=== PATIENT | female | born 2000 | race Caucasian/White ===

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

== ENCOUNTER 2020-04-30 01:15 | Inpatient (IN) | payer MEDICAID ==
[~2020-04-30] VITALS: Ht 160 cm; Wt 61.8 kg
[2020-04-30] VITALS (15 sets, daily range): BP systolic 94–122; BP diastolic 58–74; PULSE 55–83; TEMP 97.1–98.4
--- NOTE | 2020-04-30 02:25 | NUR ---
Repeat SVE with changes noted. Discussed with pt laboring toward vaginal delivery or elective primary C/S. Reviewed risks/benefits of both. Pt declines labor, opts for C/S.
--- NOTE | 2020-04-30 02:45 | NUR ---
Dr Knight @ bedside, SVE. Discusses delivery options with pt and friend. Questions invited and answered. Pt states "I can try for a vaginal delivery"
--- NOTE | 2020-04-30 03:00 | NUR ---
To edge of bed for epidural placement. See anesthesia record.
[2020-04-30 03:05] LABS: BASO # 0.1 (0.0-0.2); BASO % 0.4 % (0.0-2.0); EOS # 0.3 (0.0-0.7); EOS % 1.6 % (0-4.0); GRAN # 12.3 (1.4-6.5); GRAN % 69.4 % (42.2-75.2); HEMATOCRIT 30.5 % (37.0-47.0); HEMOGLOBIN 10.1 g/dl (12.5-16.0); LYMPH # 3.8 (1.2-3.4); LYMPH % 21.4 % (20.0-51.0); MEAN CELL VOLUME 85 fl (80.0-100.0); MEAN CORPUSCULAR HEMOGLOBIN 28 pg (27.0-31.0); MEAN CORPUSCULAR HGB CONC 33 g/dl (33.0-37.0); MEAN PLATELET VOLUME 12.6 fl (7.4-10.4); MONO # 1.2 (0.1-0.6); MONO % 6.5 % (1.7-9.3); PLATELET COUNT 273 K/mm3 (130-400); RED BLOOD COUNT 3.58 M/mm3 (4.10-5.30); REDCELL DISTRIBUTION WIDTH-CV 14.8 % (11.5-14.5)
--- NOTE | 2020-04-30 03:19 | NUR ---
After epidural catheter taped in place, as pt is laying down, she states "I think I just want a C/S"
--- NOTE | 2020-04-30 03:55 | NUR ---
To OR per bed.
--- NOTE | 2020-04-30 06:55 | NUR ---
Pericare provided. Clean bed pad and peripad provided. Pain medication, snack given. POC discussed.
[2020-04-30] MEDS ORDERED: ZOLOFT 100MG100 MG PO (07:26)
--- NOTE | 2020-04-30 08:30 | NUR ---
Pt up to bathroom with standby assist. Urinary cath removed. Pericare provided. Clean gown, mesh panties, forest-pad, clean bed pad, abdominal binder provided. Assisted back to bed.
--- NOTE | 2020-04-30 09:36 | NUR ---
Patient visiting infant in nursery. Partner at bedside with pt and . Mother updated on POC by Dr. Veras.
--- NOTE | 2020-04-30 16:15 | NUR ---
1615- Offered COVID swab per standing orders, Pt declines because she does not have symptoms. Pt educated on asymptomatic carriers and that we want to test for contact tracing. Pt declines at this time.
[2020-05-01 03:00] VITALS: BP 98/52; PULSE 61; TEMP 98
[2020-05-01 06:45] VITALS: BP 106/66; PULSE 60; TEMP 98
--- NOTE | 2020-05-01 06:45 | NUR ---
Rests in bed, alert. States has a little blood from her breast when pumping. Gave patient some lanolin cream. Explained to her how to use it.
--- NOTE | 2020-05-01 09:16 | NUR ---
paste worker met with patient, alone, to assess needs and safety. Patient presents and states she is in a polyamorous relationship with another female and a male. Patient states that the male is the father of her baby. Female partner is present and is patient's support person throughout hospital stay. Staff reports that patient often looks to female when receiving questions and that female often answers questions directed to patient. Staff reports that patient was on face time with male partner on 04/30/2020 for about 5 hours. paste worker asked about patient's first child and patient confirmed that DCF was involved and that child was removed from her care and that she severed her own rights with that child. Patient states that this was in [place], [place]. Worker asked patient, human trafficking screening questions. Patient states that she is not being forced to commit acts and be involved in this relationship against her will. Patient states "this is hard for people to understand, but I am willing to be in this relationship". Patient states that there are no other people in this relationship, other than her and the and . Patient states that her mother is and that her father lives down the street and is aware that she is in this relationship. Patient states that she if off work from [employer] and that she has supplies and is enrolled in the WIC program in [place], [place]. paste worker collaborated with nursing regarding the above information.
[2020-05-01] MEDS ORDERED: MOTRIN 600600 MG/TAB PO (11:04)
[2020-05-01] MEDS ORDERED: PERCOCET 325 MG1 TA2 PO (11:05)
--- NOTE | 2020-05-01 11:30 | NUR ---
Rests in bed, alert. Checked incision site. Went over signs and symtoms of infection. 1135 Ibuprofen 600 mg given as ordered.
--- NOTE | 2020-05-01 11:50 | NUR ---
Request tums and percocet. Tums 1,000 mg, percocet 5/325 mg two given per request and as ordered.
[2020-05-01 16:30] VITALS: BP 100/53; PULSE 58; TEMP 98.1
[2020-05-01 18:36] VITALS: BP 110/71; PULSE 69; TEMP 98
--- NOTE | 2020-05-02 07:02 | NUR ---
BEDSIDE REPORT DECLINED. REPORT RECEIVED FROM OFF GOING RNGEO. CARE TAKEN OVER BY THIS RN.
[2020-05-02 07:18] VITALS: BP 92/47; PULSE 67; TEMP 98.6
== END 2020-05-02 10:05 | disposition home or self-care (01) | DRG 788 ==
LOC: LDRO 01:15 → LDR 01:40 → OB 02:44 → LDR 02:44 → LDRO 02:44 → OB 06:00
PROVIDERS: Obstetrics & Gynecology; ADMIT Obstetrics & Gynecology
PROC: 10D00Z1 Extraction of Products of Conception, Low, Open Approach (ICD-10-PCS; principal; 2020-04-30)
DX: O34.593 Maternal care for other abnormalities of gravid uterus, third trimester (principal); O43.113 Circumvallate placenta, third trimester; N85.6 Intrauterine synechiae; O99.02 Anemia complicating childbirth; O99.344 Other mental disorders complicating childbirth; F32.9 Major depressive disorder, single episode, unspecified; D64.9 Anemia, unspecified; Z3A.36 36 weeks gestation of pregnancy; Z37.0 Single live birth; O99.334 Smoking (tobacco) complicating childbirth; F17.210 Nicotine dependence, cigarettes, uncomplicated; Z88.0 Allergy status to penicillin
CPT/HCPCS: J0690; J1885; J2270; J2370; J2400; J2405; J2590; J7120

== ENCOUNTER 2023-02-11 04:42 | Inpatient (IN) | payer MEDICAID ==
[2023-02-11] VITALS (28 sets, daily range): BP systolic 84–138; BP diastolic 48–73; PULSE 44–71; TEMP 97.8–98.3
[~2023-02-11] VITALS: Ht 160 cm; Wt 62.7 kg
[~2023-02-11 04:42] MED LIST: MOTRIN 600600 MG/TAB PO; PERCOCET 325 MG1 TA2 PO; PRENATAL TABLET PO; TUMS500 MG PO; TYLENOL 500MG500 MG PO; ZOLOFT 100MG100 MG PO
--- NOTE | 2023-02-11 04:55 | NUR ---
PT OF , , 35/2, PRESENTS FOR LEAKING OF FLUIDS, STATES HER WATER BROKE AT 0430. CONFIRMS MOVEMENT, DENIES ANY BLEEDING, DENIES ANY COMPLICATIONS WITH THIS .
--- NOTE | 2023-02-11 05:15 | NUR ---
NOTIFIED THAT PT OF PRESENTS, , 35/2, FOR SPONTANEOUS RUPTURE OF MEMBRANES. AMNIOTRACE POSITIVE. PT DILATED 3/90%/-2, ISHAAN IRREGULARLY EVERY 6-8 MINUTES. REPEAT CSECTION. SROM AT 0430 THIS MORNING, CLEAR FLUID. STRIP REACTIVE. ORDERS TO GIVE BETAMETHASONE, GIVE 2GM ANCEF, KEEP PATIENT NPO, AND PLAN TO GO BACK FOR A CSECTION AT 1000. IF PATIENT STARTS TO LABOR PRIOR TO THEN TO NOTIFY HER.
[2023-02-11 05:59] LABS: BASO # 0.1 K/mm3 (0.0-0.2); BASO % 0.4 % (0.0-2.0); EOS # 0.2 K/mm3 (0.0-0.7); EOS % 1.5 % (0.0-4.0); GRAN # 9.3 K/mm3 (1.4-6.5); GRAN % 65.9 % (42.2-75.2); HEMOGLOBIN 10.9 g/dl (12.5-16.0); LYMPH # 3.6 K/mm3 (1.2-3.4); LYMPH % 25.4 % (20.0-51.0); MEAN CELL VOLUME 89 fl (80.0-100.0); MEAN CORPUSCULAR HEMOGLOBIN 29 pg (27-31); MEAN CORPUSCULAR HGB CONC 33 g/dl (33.0-37.0); MONO # 0.9 K/mm3 (0.1-0.6); MONO % 6.2 % (1.7-9.3); PLATELET COUNT 239 K/mm3 (130-400); RED BLOOD COUNT 3.75 M/mm3 (4.10-5.30); REDCELL DISTRIBUTION WIDTH-CV 12.8 % (11.5-14.5)
[2023-02-11 06:00] LABS: HEMATOCRIT 33.4 % (37.0-47.0)
--- NOTE | 2023-02-11 10:45 | NUR ---
PT ARRIVED TO PACU AT 1040 S/P REPEAT C/S DUE TO PROM AT 35.2. PT ALERT AND ORIENTATED, TIRED. VSS. PT NORMAL BP HAS BEEN 90-100/50-60'S UPON ARRIVAL TO HOSPTIAL. PT WITHOUT COMPLAINTS. MILD NAUSEA HAS RESOLVED. ABD INCISION CLOSED WITH SUTURE AND COVERED WITH TELFA, ABD AND MEDIPORE TAPE. DSG DRY AND INTACT. LAWRENCE DRAINING CLEAR LIGHT YELLOW URINE. SCD'S ON. TAP BLOCK GIVEN. PT DENIES PAIN AT THIS TIME.
--- NOTE | 2023-02-11 11:08 | NUR ---
PT SLEEPING IN PACU. AROUSABLE WITH FUNDAL CHECKS.
--- NOTE | 2023-02-11 11:20 | NUR ---
PT AWAKE, ALERT AND HOLDING . DENIES DIZZINESS OR NAUSEA. REQUESTING FOOD AND DRINK. LOCHIA SCANT, DSG C/D/I. BP REMAINS 85-90'S/50'S. IV FLUIDS CONTINUE. PT TRANSFERRED VIA BED TO ROOM 10.
--- NOTE | 2023-02-11 13:30 | NUR ---
Pt requesting a wheelchair and assistance to go outside for fresh air. Explained to pt she is only 3 hours post op C/S delivery and she would not be able to get in wc as she still has not regained complete mobility in her legs. Explained we are continuing to monitor her VS and bleeding post delivery and she is requesting pain medication. Offered pt nicotine patch. Pt declined.
--- NOTE | 2023-02-11 15:05 | NUR ---
Pt uncomfortable in bed. Desires to get up to chair. Now able to lift both legs off of bed. Pericare done. Pt assisted up to chair. Tolerated activity very well and is now much more comfortable. Call light in reach. Spouse in room with pt.
--- NOTE | 2023-02-11 16:55 | NUR ---
Pt ambulated to nursing desk asking to go downstairs to meet her friend to bring her to her room for a visit. Explained to pt she is not allowed to leave the floor and that it is for her own safety since she delivered by C/S at 1001 this am. Offered pt a nicotine patch. Pt states she is not wanting to go outside to smoke and declines the patch.
[2023-02-12 03:45] VITALS: BP 138/76; PULSE 48; TEMP 98
--- NOTE | 2023-02-12 05:17 | NUR ---
SHIFT UPDATE. AT THE START OF THIS SHIFT PATIENT WAS AMBULATING IN [place] AND REQUESTED THAT BABY BE SENT TO THE NURSERY SO THAT SHE COULD REST. RN CHECKS ON PATIENT 30 MINUTES LATER AND PATIENT REPORTS VOMITING AND WANTS TO KNOW IF SHE CAN GO OUTSIDE, SHE FEELS THAT SOME FRESH AIR WOULD HELP HER NAUSEA. RN STATES THAT PATIENTS ARE NOT ALLOWED TO LEAVE THE UNIT, OFFERS CRACKERS AND SPRITE, PT STATES SHE WOULD LIKE TO TRY SOME CRACKERS AND SPRITE. PATIENT THEN REQUESTS THAT BE BROUGHT BACK TO THE ROOM. PT VOMITS AGAIN AN HOUR LATER AND STATES THAT SHE IS CRAMPY AND FEELS THOUGH SHE IS GOING TO PASS A CLOT, RN CHECKS FUNDUS, FIRM 2 BELOW AND SCANT BLEEDING NOTED. PATIENT REQUESTS TO SIT IN THE SHOWER TO HELP WITH THE CRAMPING. RN ASSISTS PATIENT INTO THE SHOWER. PT STATES THE SHOWER DID NOT HELP AT ALL AND FEELS THOUGH SHE IS CRAMPY BECAUSE SHE IS UNABLE TO PEE, SHE HAS NOT PEED SINCE HER LAWRENCE WAS REMOVED AROUND 1600. RN BLADDER SCANS PATIENT, 100 ML OF URINE NOTED. INFORMED PATIENT THAT THERE IS NOT A SIGNIFICANT AMOUNT OF URINE NOTED TO JUSTIFY STRAIGHT CATHING HER. PATIENT STATES WE CAN GIVE IT ANOTHER HOUR. AROUND 2200, IBUPROFEN, AUTUMN, AND ZOFRAN GIVEN. RN STATES IF NO IMPROVEMENT IN 1 HOUR WE WILL SEE ABOUT THE NEXT STEPS. PT COMPLAINS OF PAINS UP TO HER CHEST THAT RADIATE TO HER SHOULDERS AND NECK. RN EDUCATES PATIENT ON GAS PAINS, AMBULATING AND LAYING ON HER SIDE. PT VERBALIZES UNDERSTANDING. AN HOUR LATER PT STILL REPORTS BEING IN PAIN, PT ABLE TO VOID A SMALL AMOUNT BUT HAS NOT TRIED AMBULATING OR LAYING ON HER SIDE. RN RECOMMENDS THESE INTERVENTIONS FIRST AND THAT WE CAN FOLLOW UP. PATIENT STILL NOT PERFORMING RECOMMENDED INTERVENTIONS. TUMS, SIMETHICONE, AND TRAZODONE GIVEN, RN STATES IF NO IMPROVEMENT THE NEXT MEDICATION WOULD BE A RECTAL SUPPOSITORY. PT STATES SHE WOULD LIKE TO TRY AND LAY DOWN INSTEAD AND GET SOME SLEEP. PT SLEEPS PEACEFULLY FOR A FEW HOURS. WHEN SHE AWAKES SHE REQUESTS THAT INFANT BE BROUGHT TO HER ROOM. RN ENCOURAGES HER TO TRY TO USE THE BATHROOM AGAIN AND BRINGS PRN PAIN MEDICATION. 1 HOUR AFTER MEDICATION PATIENT STATES THE CRAMPING PAIN IS BACK AND IS GETTING INTOLERABLE. RN RECOMMENDED AMBULATION, PATIENT STILL IS NOT PASSING GAS AND WAS NOT WILLING TO LAY ON HER SIDE. AROUND 0500 FLUIDS WERE STARTED DUE TO MINIMAL URINE OUTPUT, EMESIS, AND MINIMAL ORAL INTAKE. PT REQUESTS MORE ZOFRAN AND TUMS AT THAT TIME. TYLENOL ALSO GIVEN. RN ENCOURAGES PATIENT TO ATTEMPT THE MANEUVERS TO ASSIST WITH GAS RELIEF. PATIENT NOT WILLING TO ATTEMPT OTHER INTERVENTIONS AT THIS TIME.
[2023-02-12 07:40] VITALS: BP 98/54; PULSE 58; TEMP 97.6
[2023-02-12] MEDS ORDERED: IBU800 M1 PO (09:39)
--- NOTE | 2023-02-13 13:41 | NUR ---
Extractor Machine Operator met with patient and her partner, Surekha Arthur at bedside to assess for needs. When SW asked Surekha what her relationship is to patient, she stated "I'm the other mom", referring to infant. Patient is in a polyamorous relationship with Surekha and her , Mario Arthur. There are four other children in the home. Surekha stated her biological children are Jesús (15), Isabelle (13), Son (11). Then patient has another child at home, Liang (3). Patient stated her step father lives locally and that she, Surekha and Mario all have supportive families that can provide help with baby if needed. 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 Patient is doing a combination of formula/breast feeding and has a wearable pump at bedside. Patient is established with [facility]. Patient has all needed supplies for baby including bassinet and carseat. Patient reports having enough diapers, wipes and clothes. SW did provide care package as well as resource guide for [facility] as she lives in [place]. Patient does endorse a history of but denies any current concerns. Patient plans to get baby established with Dr. Simon. Patient denies any questions or concerns about bringing baby home. SW spoke with Dr. Omer about the above.
== END 2023-02-12 11:15 | disposition home or self-care (01) | DRG 787 ==
LOC: LDRO 04:42 → LDR 04:52 → LDRO 05:30 → LDR 05:31 → OB 02-12 05:25
PROVIDERS: Obstetrics & Gynecology; ADMIT Obstetrics & Gynecology
PROC: 10D00Z1 Extraction of Products of Conception, Low, Open Approach (ICD-10-PCS; principal; 2023-02-11)
DX: O34.211 Maternal care for low transverse scar from previous cesarean delivery (principal); O23.593 Infection of other part of genital tract in pregnancy, third trimester; Z3A.35 35 weeks gestation of pregnancy; O99.334 Smoking (tobacco) complicating childbirth; F17.210 Nicotine dependence, cigarettes, uncomplicated; O99.02 Anemia complicating childbirth; D64.9 Anemia, unspecified; O99.344 Other mental disorders complicating childbirth; O42.913 Preterm premature rupture of membranes, unspecified as to length of time between rupture and onset of labor, third trimester; F32.A Depression, unspecified; Z37.0 Single live birth; Z88.1 Allergy status to other antibiotic agents
CPT/HCPCS: J0456; J0665; J0690; J0702; J1100; J1885; J2405; J2590; J7050; J7120